=== PATIENT | female | born 1950 | race Caucasian/White ===

== ENCOUNTER 2018-11-13 20:09 | Emergency (ER) | payer OTHER ==
[~2018-11-13] VITALS: Ht 167.6 cm; Wt 63.5 kg
[~2018-11-13 20:09] MED LIST: ACEASPCAF PO; ALBIPROI; AMIT50; C-PAP AT NIGHT; FLUSAL1005; IBUP400 PO; LISI10 PO; OMEP20ER; OXYGEN; PROGESTERONE CREAM; TOPI100; TRAN2; VERA240ER
[2018-11-13 20:48] LABS: BASOPHILS ABSOLUTE AUTO 0.03 K/mm3 (0.00-0.23); BASOPHILS PERCENT AUTO 0 % (0-2); EOSINOPHILS ABSOLUTE AUTO 0.32 K/mm3 (0.00-0.68); EOSINOPHILS PERCENT AUTO 4 % (0-6); Hematocrit 40.6 % (33.0-51.0); IMMATURE GRAN ABSOLUTE AUTO 0.02 K/mm3 (0.00-0.10); IMMATURE GRAN PERCENT AUTO 0 % (0-1); LYMPHOCYTES ABSOLUTE AUTO 3.26 K/mm3 (0.84-5.20); LYMPHOCYTES PERCENT AUTO 43 % (21-46); MONOCYTES ABSOLUTE AUTO 0.86 K/mm3 (0.16-1.47); MONOCYTES PERCENT AUTO 11 % (4-13); Mean Corpuscular HGB 28.6 pg (26.0-34.0); Mean Corpuscular Volume 89 fL (80-100); Mean Platelet Volume 9.4 fL (9.1-12.4); NEUTROPHILS ABSOLUTE AUTO 3.15 K/mm3 (1.96-9.15); NEUTROPHILS PERCENT AUTO 41 % (41-73); Platelet Count 294 K/mm3 (150-400); RDW Coefficient Variation 13.7 % (11.7-14.2); RDW Standard Deviation 44.9 fL (35.1-46.3); Red Blood Cell Count 4.54 M/mm3 (3.80-5.20); White Blood Cell Count 7.64 K/mm3 (4.00-11.30)
[2018-11-13 21:08] LABS: Alanine Aminotransfer (ALT/SGP 10 U/L (12-78); Albumin, Blood 3.6 g/dL (3.4-5.0); Albumin/Globulin Ratio 1.1 (0.8-1.8); Alk Phos 90 U/L (50-136); Anion Gap 7 mmol/L (6-16); Aspartate Aminotrans (AST/SGOT 11 U/L (12-37); Bilirubin, Total 0.2 mg/dL (0.1-1.0); Blood Urea Nitrogen 16 mg/dL (8-24); Bun/Creatinine Ratio 17.6 (12.0-20.0); CO2, Blood 30 mmol/L (21-32); Calcium, Blood 9.1 mg/dL (8.5-10.1); Chloride, Blood 105 mmol/L (98-108); Creatinine, Blood 0.91 mg/dL (0.40-1.00); Globulin, Blood 3.3 g/dL (2.2-4.0); Glomerular Filtration Rate >60 (60-); Glucose, Blood 102 mg/dL (70-99); Potassium, Blood 3.8 mmol/L (3.5-5.5); Sodium, Blood 142 mmol/L (136-145); Total Protein, Blood 6.9 g/dL (6.4-8.2)
[2018-11-13] MEDS ORDERED: Cymbalta20 MG PT (22:35)
[2018-11-13] MEDS ORDERED: BUSP10 (22:35)
[2018-11-13] MEDS ORDERED: METF500C PO (22:35)
[2018-11-13] MEDS ORDERED: Amitriptyline H10 MG PO (22:36)
== END 2018-11-14 00:23 | disposition home or self-care (01) ==
LOC: ER 20:09
PROVIDERS: Physician Assistant
DX: R47.01 Aphasia (principal); Z88.0 Allergy status to penicillin; Z79.899 Other long term (current) drug therapy; Z79.84 Long term (current) use of oral hypoglycemic drugs; I10 Essential (primary) hypertension
CPT/HCPCS: 36415; 70450; 80053; 85025; 96360; 99284-25; J7030

== ENCOUNTER 2019-02-13 23:14 | Emergency (ER) | payer OTHER ==
[~2019-02-13] VITALS: Ht 167.6 cm; Wt 63.5 kg
[~2019-02-13 23:14] MED LIST changes: +Amitriptyline H10 MG PO; +BUSP10; +Cymbalta20 MG PT; +METF500C PO
[2019-02-13] MEDS ORDERED: Monodox100 MG PO (23:37)
== END 2019-02-14 00:02 | disposition home or self-care (01) ==
LOC: ER 23:14
DX: S51.851A Open bite of right forearm, initial encounter (principal); L03.113 Cellulitis of right upper limb; I10 Essential (primary) hypertension; Z88.0 Allergy status to penicillin; Z79.899 Other long term (current) drug therapy; W55.01XA Bitten by cat, initial encounter
CPT/HCPCS: 99283

== ENCOUNTER 2019-02-14 20:31 | Emergency (ER) | payer OTHER ==
[~2019-02-14] VITALS: Ht 167.6 cm; Wt 63.5 kg
[~2019-02-14 20:31] MED LIST changes: +Monodox100 MG PO
== END 2019-02-14 23:38 | disposition home or self-care (01) ==
LOC: ER 20:31
DX: L03.113 Cellulitis of right upper limb (principal); Z91.14 Patient's other noncompliance with medication regimen; I10 Essential (primary) hypertension; M79.7 Fibromyalgia; Z88.0 Allergy status to penicillin; Z79.899 Other long term (current) drug therapy; W55.01XA Bitten by cat, initial encounter
CPT/HCPCS: 99283

== ENCOUNTER 2021-07-25 04:28 | Emergency (ER) | payer OTHER ==
[~2021-07-25] VITALS: Ht 165.1 cm; Wt 56.7 kg
[2021-07-25] MEDS ORDERED: OMEP20ER PO (04:57)
[2021-07-25] MEDS ORDERED: IPRAT-ALBUT 0.5-3 ML INH (04:58)
[2021-07-25] MEDS ORDERED: MONT4 PO (04:58)
[2021-07-25 06:09] LABS: BASOPHILS ABSOLUTE AUTO 0.01 K/mm3 (0.00-0.23); BASOPHILS PERCENT AUTO 0 % (0-2); EOSINOPHILS ABSOLUTE AUTO 0.01 K/mm3 (0.00-0.68); EOSINOPHILS PERCENT AUTO 0 % (0-6); Hematocrit 42.6 % (33.0-51.0); Hemoglobin 14.7 g/dL (11.5-16.0); IMMATURE GRAN ABSOLUTE AUTO 0.04 K/mm3 (0.00-0.10); IMMATURE GRAN PERCENT AUTO 1 % (0-1); LYMPHOCYTES ABSOLUTE AUTO 1.17 K/mm3 (0.84-5.20); LYMPHOCYTES PERCENT AUTO 22 % (21-46); MONOCYTES ABSOLUTE AUTO 0.57 K/mm3 (0.16-1.47); MONOCYTES PERCENT AUTO 11 % (4-13); Mean Corpuscular HGB Conc 34.5 g/dL (31.5-36.5); Mean Corpuscular Volume 84 fL (80-100); Mean Platelet Volume 10.6 fL (9.1-12.4); NEUTROPHILS PERCENT AUTO 66 % (41-73); Platelet Count 208 K/mm3 (150-400); RDW Coefficient Variation 13.2 % (11.7-14.2); RDW Standard Deviation 40.7 fL (35.1-46.3); Red Blood Cell Count 5.07 M/mm3 (3.80-5.20)
[2021-07-25 06:23] LABS: Alanine Aminotransfer (ALT/SGP 15 U/L (12-78); Albumin, Blood 3.1 g/dL (3.4-5.0); Albumin/Globulin Ratio 0.8 (0.8-1.8); Alk Phos 78 U/L (50-136); Anion Gap 11 mmol/L (6-16); Aspartate Aminotrans (AST/SGOT 8 U/L (12-37); Bilirubin, Total 0.6 mg/dL (0.1-1.0); Blood Urea Nitrogen 15 mg/dL (8-24); Bun/Creatinine Ratio 17.4 (12.0-20.0); CO2, Blood 24 mmol/L (21-32); Calcium, Blood 9.9 mg/dL (8.5-10.1); Chloride, Blood 105 mmol/L (98-108); Creatinine, Blood 0.86 mg/dL (0.40-1.00); Globulin, Blood 3.7 g/dL (2.2-4.0); Glomerular Filtration Rate >60 (60-); Glucose, Blood 157 mg/dL (70-99); Potassium, Blood 3.3 mmol/L (3.5-5.5); Sodium, Blood 140 mmol/L (136-145); Total Protein, Blood 6.8 g/dL (6.4-8.2); Troponin I <0.015 ng/mL (0.000-0.040)
[2021-07-25 07:04] LABS: SARS-Cov-2 (COVID-19) PCR, MMC POSITIVE (NEGATIVE)
[2021-07-25] MEDS ORDERED: LOPE2C PO (07:30)
[2021-07-25] MEDS ORDERED: ONDA4ODT MM (07:30)
[2021-07-25 07:52] LABS: Source, Urine Clean Catch
[2021-07-25 07:56] LABS: Appearance, Urine Clear (Clear); Bilirubin, Urine Neg (Neg); Blood, Urine Neg (Neg); Color, Urine Yellow (P-Yellow); Glucose Qualitative, Urine Neg (Neg); Ketones, Urine Neg (Neg); Leukocyte Esterase, Urine 1+ (Neg); Nitrite, Urine Neg (Neg); Protein, Urine Neg (Neg); Urobilinogen, Urine NORM (Normal); pH, Urine 6.5 (5.0-8.0)
[2021-07-25 08:08] LABS: Bacteria Rare /hpf; Red Blood Cells, Urine 0-2 /hpf (0-2); Squamous Epithelial Cells Rare /hpf (Few); White Blood Cells, Urine 0-2 /hpf (0-5)
[2021-07-26] MEDS ORDERED: BENADRYL25 MG PO (00:36)
[2021-07-26] MEDS ORDERED: HYDHCL25 PO (00:36)
== END 2021-07-25 10:48 | disposition home or self-care (01) ==
LOC: ER 04:28
PROVIDERS: Emergency Medicine
DX: U07.1 COVID-19 (principal); E86.0 Dehydration; I10 Essential (primary) hypertension; Z79.899 Other long term (current) drug therapy
CPT/HCPCS: 36415; 71045; 80053; 81001; 84484; 85025; 87086; 87147; 93005; 93010; 99284-25; A9270; J7030; J7120; M0243; Q0243; U0004

== ENCOUNTER 2021-07-25 22:18 | Emergency (ER) | payer OTHER ==
[~2021-07-25] VITALS: Ht 167.6 cm; Wt 56.7 kg
[~2021-07-25 22:18] MED LIST changes: +IPRAT-ALBUT 0.5-3 ML INH; +LOPE2C PO; +MONT4 PO; +OMEP20ER PO; +ONDA4ODT MM
[2021-07-26] MEDS ORDERED: HYDHCL25 PO (00:36)
[2021-07-26] MEDS ORDERED: BENADRYL25 MG PO (00:36)
== END 2021-07-26 00:47 | disposition home or self-care (01) ==
LOC: ER 22:18
DX: U07.1 COVID-19 (principal); L50.9 Urticaria, unspecified; F41.9 Anxiety disorder, unspecified; I82.C19 Acute embolism and thrombosis of unspecified internal jugular vein; Z88.0 Allergy status to penicillin; Z79.899 Other long term (current) drug therapy; M79.7 Fibromyalgia; I10 Essential (primary) hypertension
CPT/HCPCS: 96374; 99283-25; A9270; J1200; J7030

== ENCOUNTER 2021-12-08 17:10 | Emergency (ER) | payer OTHER ==
[~2021-12-08] VITALS: Ht 165.1 cm; Wt 63.5 kg
[~2021-12-08 17:10] MED LIST changes: +BENADRYL25 MG PO; +HYDHCL25 PO
[2021-12-08] MEDS ORDERED: Norco 5-325 Ta1 EACH PO (18:03)
[2021-12-08] MEDS ORDERED: CRUTCH4 XX (18:05)
== END 2021-12-08 18:35 | disposition home or self-care (01) ==
LOC: ER 17:10
DX: S92.321A Displaced fracture of second metatarsal bone, right foot, initial encounter for closed fracture (principal); S92.331A Displaced fracture of third metatarsal bone, right foot, initial encounter for closed fracture; S92.341A Displaced fracture of fourth metatarsal bone, right foot, initial encounter for closed fracture; I10 Essential (primary) hypertension; Z88.0 Allergy status to penicillin; Z79.899 Other long term (current) drug therapy; W08.XXXA Fall from other furniture, initial encounter
CPT/HCPCS: 29515; 99283-25; A9270

== ENCOUNTER 2022-02-17 00:30 | Inpatient (IN) | payer OTHER ==
[~2022-02-17] VITALS: Ht 172.7 cm; Wt 64.0 kg
[~2022-02-17 00:30] MED LIST changes: -BUSP10; +BUSP10 PO; +CRUTCH4 XX; +Norco 5-325 Ta1 EACH PO
[2022-02-17 01:10] LABS: BASOPHILS ABSOLUTE AUTO 0.02 K/mm3 (0.00-0.23); BASOPHILS PERCENT AUTO 0 % (0-2); EOSINOPHILS PERCENT AUTO 0 % (0-6); Hematocrit 36.1 % (33.0-51.0); Hemoglobin 11.9 g/dL (11.5-16.0); IMMATURE GRAN ABSOLUTE AUTO 0.02 K/mm3 (0.00-0.10); IMMATURE GRAN PERCENT AUTO 0 % (0-1); LYMPHOCYTES ABSOLUTE AUTO 0.86 K/mm3 (0.84-5.20); LYMPHOCYTES PERCENT AUTO 10 % (21-46); MONOCYTES ABSOLUTE AUTO 0.36 K/mm3 (0.16-1.47); MONOCYTES PERCENT AUTO 4 % (4-13); Mean Corpuscular HGB 29.8 pg (26.0-34.0); Mean Corpuscular Volume 90 fL (80-100); Mean Platelet Volume 9.7 fL (9.1-12.4); NEUTROPHILS ABSOLUTE AUTO 7.23 K/mm3 (1.96-9.15); NEUTROPHILS PERCENT AUTO 85 % (41-73); Platelet Count 286 K/mm3 (150-400); RDW Coefficient Variation 14.3 % (11.7-14.2); RDW Standard Deviation 47.8 fL (35.1-46.3); White Blood Cell Count 8.49 K/mm3 (4.00-11.30)
[2022-02-17 01:21] LABS: Source, Urine Clean Catch
[2022-02-17 01:23] LABS: Bilirubin, Urine Neg (Neg); Blood, Urine 2+ (Neg); Glucose Qualitative, Urine Neg (Neg); Ketones, Urine 4+ (Neg); Leukocyte Esterase, Urine Neg (Neg); Nitrite, Urine Neg (Neg); Protein, Urine 1+ (Neg); Urobilinogen, Urine NORM (Normal)
[2022-02-17 01:28] LABS: Alanine Aminotransfer (ALT/SGP 16 U/L (12-78); Albumin, Blood 3.4 g/dL (3.4-5.0); Alk Phos 79 U/L (50-136); Anion Gap 8 mmol/L (6-16); Aspartate Aminotrans (AST/SGOT 18 U/L (12-37); Bilirubin, Total 0.6 mg/dL (0.1-1.0); Blood Urea Nitrogen 13 mg/dL (8-24); CO2, Blood 24 mmol/L (21-32); Calcium, Blood 9.5 mg/dL (8.5-10.1); Chloride, Blood 105 mmol/L (98-108); Creatinine, Blood 0.81 mg/dL (0.40-1.00); Ethanol (Alcohol), Blood, Med <3 mg/dL; Globulin, Blood 3.4 g/dL (2.2-4.0); Glomerular Filtration Rate 79 (60-); Glucose, Blood 126 mg/dL (70-99); Potassium, Blood 3.9 mmol/L (3.5-5.5); Sodium, Blood 137 mmol/L (136-145); Total Protein, Blood 6.8 g/dL (6.4-8.2)
[2022-02-17 01:36] LABS: Appearance, Urine Clear (Clear); Color, Urine Yellow (P-Yellow)
[2022-02-17 01:37] LABS: Bacteria Not Seen /hpf; Red Blood Cells, Urine 0-2 /hpf (0-2); Squamous Epithelial Cells Rare /hpf (Few); White Blood Cells, Urine Not Seen /hpf (0-5)
[2022-02-17 01:43] LABS: Base Excess Venous 2.8 mmol/L; Bicarbonate Venous 26.9 mmol/L (24.0-30.0); pH Blood Venous 7.48 (7.34-7.37)
[2022-02-17 01:46] LABS: U Amphetamine Screen Not Detected; U Barbituate Screen Not Detected; U Benzodiazapine Screen Not Detected; U Buprenorphine Screen Not Detected; U Cannabinoids Screen DETECTED; U Cocaine Screen Not Detected; U Methadone Screen Not Detected; U Methamphetamine Screen Not Detected; U Opiates Screen DETECTED; U Oxycodone Screen Not Detected; U Phencyclidine Screen Not Detected; U Propoxyphene Screen Not Detected
[2022-02-17 02:11] LABS: CPK Creatine Kinase 171 U/L (26-193)
[2022-02-17 02:59] LABS: Influenza A, PCR NEGATIVE (NEGATIVE); Influenza B, PCR NEGATIVE (NEGATIVE); Resp Syncytial Virus, PCR NEGATIVE (NEGATIVE); SARS-Cov-2 (COVID-19) PCR, MMC NEGATIVE (NEGATIVE)
[2022-02-17 05:50] LABS: C-REACTIVE PROTEIN, EXT RANGE 0.636 mg/dL (0.000-0.300)
--- NOTE | 2022-02-17 17:07 | NUR ---
PT UP TO UNIT AT 1545. PT A&O, FOLLOWS COMMANDS. ASSESSMENT COMPLETED, NO SKIN BREAKDOWN NOTED. PT ON MONITOR, COMFIRMED WITH BAKERY HELPER PT NAME, , AND BOX NUMBER. PT ST, 100'S. NO C/O PAIN. NS INFUSING AT 125ML/HR PER ORDERS X 1.5L. ORIENTED TO ROOM AND PLAN OF CARE. PT VOICED UNDERSTANDING.
--- NOTE | 2022-02-17 18:10 | NUR ---
THIS ENDOCRINOLOGY NURSE HAS REVIEWED LAWRENCE MCGUIRE'S NOTES AND ASSESSMENTS AND AGREES WITH THEM.
[2022-02-18 05:16] LABS: BASOPHILS ABSOLUTE AUTO 0.03 K/mm3 (0.00-0.23); BASOPHILS PERCENT AUTO 0 % (0-2); EOSINOPHILS ABSOLUTE AUTO 0.06 K/mm3 (0.00-0.68); EOSINOPHILS PERCENT AUTO 1 % (0-6); Hematocrit 35.3 % (33.0-51.0); Hemoglobin 11.5 g/dL (11.5-16.0); IMMATURE GRAN ABSOLUTE AUTO 0.02 K/mm3 (0.00-0.10); IMMATURE GRAN PERCENT AUTO 0 % (0-1); LYMPHOCYTES ABSOLUTE AUTO 2.53 K/mm3 (0.84-5.20); LYMPHOCYTES PERCENT AUTO 37 % (21-46); MONOCYTES ABSOLUTE AUTO 0.77 K/mm3 (0.16-1.47); MONOCYTES PERCENT AUTO 11 % (4-13); Mean Corpuscular HGB 29.8 pg (26.0-34.0); Mean Corpuscular HGB Conc 32.6 g/dL (31.5-36.5); Mean Corpuscular Volume 92 fL (80-100); Mean Platelet Volume 9.5 fL (9.1-12.4); NEUTROPHILS ABSOLUTE AUTO 3.53 K/mm3 (1.96-9.15); NEUTROPHILS PERCENT AUTO 51 % (41-73); Platelet Count 253 K/mm3 (150-400); RDW Coefficient Variation 14.6 % (11.7-14.2); RDW Standard Deviation 49.2 fL (35.1-46.3); Red Blood Cell Count 3.86 M/mm3 (3.80-5.20); White Blood Cell Count 6.94 K/mm3 (4.00-11.30)
[2022-02-18 05:48] LABS: Albumin/Globulin Ratio 1.1 (0.8-1.8); Bilirubin, Total 0.8 mg/dL (0.1-1.0); Calcium, Blood 9.1 mg/dL (8.5-10.1); Creatinine, Blood 0.71 mg/dL (0.40-1.00); Globulin, Blood 2.8 g/dL (2.2-4.0); Magnesium, Blood 1.7 mg/dL (1.6-2.4); Phosphorus, Blood 2.2 mg/dL (2.5-4.9); Potassium, Blood 3.5 mmol/L (3.5-5.5); Total Protein, Blood 5.8 g/dL (6.4-8.2)
--- NOTE | 2022-02-18 05:50 | NUR ---
CHAINSTITCH BINDER SUMMARY ADMITTED FOR SEPSIS AND AMS. PT IS FULL CODE. SHE HAS BEEN ON NS AT 125 ML/HR- COMPLETED 1.5 L. PT IS ONE PERSON ASSIST TO THE RESTROOM AND DOES WELL. PLAN TO CONTINUE ABX AND CONTROL FEVER. PT SLEPT THROUGHOUT THE SHIFT WITHOUT COMPLAINTS.
[2022-02-18] MEDS ORDERED: AZIT250 PO (11:41)
[2022-02-18] MEDS ORDERED: ACET325 PO (11:41)
--- NOTE | 2022-02-18 16:13 | NUR ---
DISCHARGE INSTRUCTIONS, MEDICATIONS, AND FOLLOW UP INFORMATION PROVIDED TO FAMILY AND PT. PT AND FAMILY VOICED COMPLETE UNDERSTANDING AND HAVE NO QUESTIONS AT THIS TIME. IV WAS REMOVED WITH CATHETER TIP INTACT. PTS BELONGINGS COLLECTED AND SENT WITH PT.
--- NOTE | 2022-02-18 17:11 | NUR ---
THIS MOLDED FRAMES ASSEMBLER HAS REVIEWED SHAYLA BRAVO'S NOTES AND ASSESSMENTS AND AGREES WITH THEM.
== END 2022-02-18 16:45 | disposition home health service (06) | DRG 871 ==
LOC: ER 00:30 → ERHOLD 06:36 → MEDS 15:35
PROVIDERS: Emergency Medicine; Student in an Organized Health Care Education/Training Program; ADMIT Internal Medicine
DX: A41.9 Sepsis, unspecified organism (principal); J18.9 Pneumonia, unspecified organism; G93.41 Metabolic encephalopathy; E87.3 Alkalosis; Q21.1 Atrial septal defect; R65.20 Severe sepsis without septic shock; Z20.822 Contact with and (suspected) exposure to COVID-19; I10 Essential (primary) hypertension; G89.29 Other chronic pain; E86.0 Dehydration; F41.9 Anxiety disorder, unspecified; G47.30 Sleep apnea, unspecified; E11.9 Type 2 diabetes mellitus without complications; J45.909 Unspecified asthma, uncomplicated; G43.909 Migraine, unspecified, not intractable, without status migrainosus; E78.5 Hyperlipidemia, unspecified; K21.9 Gastro-esophageal reflux disease without esophagitis; M79.7 Fibromyalgia; Z98.51 Tubal ligation status; Z98.890 Other specified postprocedural states; Z79.51 Long term (current) use of inhaled steroids; Z79.899 Other long term (current) drug therapy; Z88.0 Allergy status to penicillin
CPT/HCPCS: 0241U; 36415; 70450; 70551; 71045; 80053; 81001; 82140; 82550; 82803; 83605; 83735; 83880; 84100; 84145; 84146; 85025; 85651; 86140; 87040; 93005; 93010; 96365; 96375; 96376; 99285-25; A9270; G0480; J0456; J0696; J1650; J2060; J2765; J7030; J7050; P9612

== ENCOUNTER 2022-04-15 17:28 | Emergency (ER) | payer OTHER ==
[~2022-04-15] VITALS: Ht 167.6 cm; Wt 63.5 kg
[~2022-04-15 17:28] MED LIST changes: +ACET325 PO; +AZIT250 PO; -LISI10 PO; +LISI20 PO; +NITR100CA PO
[2022-04-15] MEDS ORDERED: ATORVASTATIN CA20 MG PO (18:37)
[2022-04-15] MEDS ORDERED: BUSPIRONE HCL7.5 M6 PO (18:37)
[2022-04-15] MEDS ORDERED: OMEP20ER PO (18:38)
[2022-04-15 19:08] LABS: BASOPHILS ABSOLUTE AUTO 0.03 K/mm3 (0.00-0.23); BASOPHILS PERCENT AUTO 0 % (0-2); EOSINOPHILS ABSOLUTE AUTO 0.15 K/mm3 (0.00-0.68); EOSINOPHILS PERCENT AUTO 2 % (0-6); Hematocrit 32.3 % (33.0-51.0); Hemoglobin 10.7 g/dL (11.5-16.0); IMMATURE GRAN ABSOLUTE AUTO 0.04 K/mm3 (0.00-0.10); IMMATURE GRAN PERCENT AUTO 1 % (0-1); LYMPHOCYTES ABSOLUTE AUTO 1.97 K/mm3 (0.84-5.20); LYMPHOCYTES PERCENT AUTO 29 % (21-46); MONOCYTES ABSOLUTE AUTO 0.99 K/mm3 (0.16-1.47); MONOCYTES PERCENT AUTO 14 % (4-13); Mean Corpuscular HGB 29.9 pg (26.0-34.0); Mean Corpuscular HGB Conc 33.1 g/dL (31.5-36.5); Mean Corpuscular Volume 90 fL (80-100); Mean Platelet Volume 9.6 fL (9.1-12.4); NEUTROPHILS ABSOLUTE AUTO 3.71 K/mm3 (1.96-9.15); NEUTROPHILS PERCENT AUTO 54 % (41-73); Platelet Count 261 K/mm3 (150-400); RDW Coefficient Variation 13.1 % (11.7-14.2); RDW Standard Deviation 43.2 fL (35.1-46.3); Red Blood Cell Count 3.58 M/mm3 (3.80-5.20); White Blood Cell Count 6.89 K/mm3 (4.00-11.30)
[2022-04-15 19:13] LABS: Base Excess Venous 3.6 mmol/L; Bicarbonate Venous 27.5 mmol/L (24.0-30.0); PCO2 Venous 39.9 mmHg (38-42); PO2 Venous 133 mmHg (38-42); pH Blood Venous 7.45 (7.34-7.37)
[2022-04-15 19:33] LABS: Albumin, Blood 3.1 g/dL (3.4-5.0); Bilirubin, Total 0.2 mg/dL (0.1-1.0); Bun/Creatinine Ratio 15.6 (12.0-20.0); Calcium, Blood 7.8 mg/dL (8.5-10.1); Creatinine, Blood 0.77 mg/dL (0.40-1.00); Magnesium, Blood 0.8 mg/dL (1.6-2.4); Total Protein, Blood 6.1 g/dL (6.4-8.2)
== END 2022-04-16 00:19 | disposition home or self-care (01) ==
LOC: ER 17:28
PROVIDERS: Student in an Organized Health Care Education/Training Program
DX: R42 Dizziness and giddiness (principal); R25.1 Tremor, unspecified; E83.42 Hypomagnesemia; E87.6 Hypokalemia; R07.9 Chest pain, unspecified; I10 Essential (primary) hypertension; M79.7 Fibromyalgia; Z88.0 Allergy status to penicillin; Z79.899 Other long term (current) drug therapy
CPT/HCPCS: 36415; 71046; 80053; 82803; 83605; 83735; 84484; 85025; 85379; 93005; 93010; A9270; J1200; J1885; J2765; J3475

== ENCOUNTER → 2022-04-19 | Outpatient (CLI) | payer OTHER ==
[~2022-04-19] MED LIST changes: +ATORVASTATIN CA20 MG PO; +BUSPIRONE HCL7.5 M6 PO
[2022-04-20 09:11] LABS: Stool Occult Bld Immuno 1 Positive (NEGATIVE)
== END | disposition home or self-care (01) ==
LOC: LAB SHORT 12:00 → LAB 12:00
PROVIDERS: Student in an Organized Health Care Education/Training Program
DX: D64.9 Anemia, unspecified (principal)
CPT/HCPCS: 82274

== ENCOUNTER 2022-05-13 21:52 | Emergency (ER) | payer OTHER ==
[~2022-05-13] VITALS: Ht 167.6 cm; Wt 72.6 kg
[2022-05-13 22:26] LABS: BASOPHILS ABSOLUTE AUTO 0.03 K/mm3 (0.00-0.23); BASOPHILS PERCENT AUTO 0 % (0-2); EOSINOPHILS ABSOLUTE AUTO 0.23 K/mm3 (0.00-0.68); EOSINOPHILS PERCENT AUTO 3 % (0-6); Hematocrit 39.4 % (33.0-51.0); IMMATURE GRAN ABSOLUTE AUTO 0.02 K/mm3 (0.00-0.10); IMMATURE GRAN PERCENT AUTO 0 % (0-1); LYMPHOCYTES ABSOLUTE AUTO 4.01 K/mm3 (0.84-5.20); LYMPHOCYTES PERCENT AUTO 47 % (21-46); MONOCYTES ABSOLUTE AUTO 0.74 K/mm3 (0.16-1.47); MONOCYTES PERCENT AUTO 9 % (4-13); Mean Corpuscular HGB 29.3 pg (26.0-34.0); Mean Corpuscular Volume 89 fL (80-100); Mean Platelet Volume 10.5 fL (9.1-12.4); NEUTROPHILS ABSOLUTE AUTO 3.51 K/mm3 (1.96-9.15); NEUTROPHILS PERCENT AUTO 41 % (41-73); Platelet Count 314 K/mm3 (150-400); RDW Coefficient Variation 12.9 % (11.7-14.2); RDW Standard Deviation 42.1 fL (35.1-46.3); Red Blood Cell Count 4.44 M/mm3 (3.80-5.20); White Blood Cell Count 8.54 K/mm3 (4.00-11.30)
[2022-05-13 22:38] LABS: Albumin, Blood 3.6 g/dL (3.4-5.0); Albumin/Globulin Ratio 1.2 (0.8-1.8); Bilirubin, Total 0.5 mg/dL (0.1-1.0); Calcium, Blood 9.2 mg/dL (8.5-10.1); Creatinine, Blood 0.91 mg/dL (0.40-1.00); Globulin, Blood 3.1 g/dL (2.2-4.0); Total Protein, Blood 6.7 g/dL (6.4-8.2)
[2022-05-13 23:24] LABS: Source, Urine Clean Catch
[2022-05-13 23:53] LABS: Bilirubin, Urine Neg (Neg); Blood, Urine Neg (Neg); Glucose Qualitative, Urine Neg (Neg); Ketones, Urine 1+ (Neg); Leukocyte Esterase, Urine Neg (Neg); Nitrite, Urine Neg (Neg); Protein, Urine 2+ (Neg); Urobilinogen, Urine NORM (Normal)
[2022-05-13 23:56] LABS: U Amphetamine Screen Not Detected; U Barbituate Screen Not Detected; U Benzodiazapine Screen Not Detected; U Buprenorphine Screen Not Detected; U Cannabinoids Screen DETECTED; U Cocaine Screen Not Detected; U Methadone Screen Not Detected; U Methamphetamine Screen Not Detected; U Opiates Screen Not Detected; U Oxycodone Screen Not Detected; U Phencyclidine Screen Not Detected; U Propoxyphene Screen Not Detected
[2022-05-13 23:57] LABS: Appearance, Urine Clear (Clear); Bacteria Rare /hpf; Color, Urine Yellow (P-Yellow); Red Blood Cells, Urine 0-2 /hpf (0-2); Squamous Epithelial Cells Few /hpf (Few); White Blood Cells, Urine Not Seen /hpf (0-5)
[2022-05-14] MEDS ORDERED: LEVE500 PO (00:34)
== END 2022-05-14 03:10 | disposition home or self-care (01) ==
LOC: ER 21:52
PROVIDERS: Emergency Medicine
DX: R56.9 Unspecified convulsions (principal); I10 Essential (primary) hypertension; Z79.899 Other long term (current) drug therapy; Z88.0 Allergy status to penicillin
CPT/HCPCS: 80053; 81001; 82947; 85025; 93005; 93010; J1953

== ENCOUNTER 2022-08-16 06:59 | Day surgery (SDC) | payer OTHER ==
[~2022-08-16] VITALS: Ht 165.1 cm; Wt 68.1 kg
[~2022-08-16 06:59] MED LIST changes: +DULOXETINE HCL60 M1 PO; +LEVE500 PO
--- NOTE | 2022-08-16 08:06 | NUR ---
08/16/22 0806 Ben Moser HISTORY, CHART, MEDICATIONS AND ALLERGIES REVIEWED BEFORE START OF PROCEDURE. PATIENT CONFIRMS NPO STATUS AND AGREES WITH SCHEDULED PROCEDURE. 3-LEAD EKG REVIEWED WITH PHYSICIAN PRIOR TO START OF PROCEDURE. MONITOR INTACT WITH CONTINUOUS PULSE OXIMETRY,CAPNOGRAPHY, 3-LEAD EKG, INTERMITTENT BP. SUPPLEMENTAL O2 TO BE TITRATED THROUGHOUT PROCEDURE TO MAINTAIN O2 SATURATION ABOVE 90%. PATIENT DETERMINED TO BE ASA APPROPRIATE FOR PROPOFOL SEDATION PRIOR TO START OF PROCEDURE BY
--- NOTE | 2022-08-16 08:13 | NUR ---
Ambulatory in [facility] warming gown applied. Patient states colon prep results clear. History, Chart, Medications and Allergies reviewed before start of procedure.Lungs clear T/O to Auscultation. Patient confirms NPO status and agrees with scheduled surgery. Pre-Op teaching done. Pt verbalizes understanding. Patient States Post-Procedure ride home has been arranged.
--- NOTE | 2022-08-16 08:56 | NUR ---
REPORT RECEIVED FROM BARBARA Allen RN. TAKEN OVER CARE.
--- NOTE | 2022-08-16 09:34 | NUR ---
Patient up to Ambulate independently. Gait steady. Discharge instructions reviewed with patient. Patient verbalizes understanding. Copy given to patient to take home.Lungs clear T/O to Auscultation. Discharged via wheelchair to private car for ride home. PT TAUGHT DEEP BREATH AND COUGH FOR LUNG HEALTH.
== END 2022-08-16 22:39 | disposition home or self-care (01) ==
LOC: ORSCMMR 06:59 → ORD 08:00 → ORSCMMR 08:00
PROVIDERS: Internal Medicine Gastroenterology
PROC: 0DBN8ZX Excision of Sigmoid Colon, Via Natural or Artificial Opening Endoscopic, Diagnostic (ICD-10-PCS; principal; 2022-08-16 08:00)
PROC: 0DBK8ZX Excision of Ascending Colon, Via Natural or Artificial Opening Endoscopic, Diagnostic (ICD-10-PCS; principal; 2022-08-16 08:00)
PROC: 0DBL8ZX Excision of Transverse Colon, Via Natural or Artificial Opening Endoscopic, Diagnostic (ICD-10-PCS; principal; 2022-08-16 08:00)
DX: R19.5 Other fecal abnormalities (principal); D12.2 Benign neoplasm of ascending colon; D12.3 Benign neoplasm of transverse colon; D12.5 Benign neoplasm of sigmoid colon; K64.8 Other hemorrhoids; I10 Essential (primary) hypertension; J45.909 Unspecified asthma, uncomplicated; G40.909 Epilepsy, unspecified, not intractable, without status epilepticus; K21.9 Gastro-esophageal reflux disease without esophagitis; E78.00 Pure hypercholesterolemia, unspecified; F32.A Depression, unspecified; Z79.899 Other long term (current) drug therapy
CPT/HCPCS: 88305; J2250; J2704; J7120

== ENCOUNTER 2023-10-12 17:38 | Emergency (ER) | payer OTHER ==
[~2023-10-12] VITALS: Ht 165.1 cm; Wt 59.0 kg
[~2023-10-12 17:38] MED LIST changes: +ALBU2.5V5 INH; +CEFD300 PO; +GUAI600T33 PO; +MAGNESIUM OXID500 MG PO; +PRED20 PO; +Pepcid40 MG PO; +Prednisone20 MG PO
[2023-10-12] MEDS ORDERED: RX Prepack 6 Tabs Oxycodone 5mg UD ONE (18:50)
[2023-10-12] MEDS ORDERED: HYDROmorphone HCl/Pf 1MG SYR IV ONE (18:50)
[2023-10-12 19:45] VITALS: BP 131/89
== END 2023-10-12 19:55 | disposition home or self-care (01) ==
LOC: ER 17:38
DX: S42.212A Unspecified displaced fracture of surgical neck of left humerus, initial encounter for closed fracture (principal); M79.7 Fibromyalgia; I10 Essential (primary) hypertension; J45.909 Unspecified asthma, uncomplicated; G47.30 Sleep apnea, unspecified; F32.A Depression, unspecified; E78.5 Hyperlipidemia, unspecified; W18.30XA Fall on same level, unspecified, initial encounter; Z88.0 Allergy status to penicillin; Z91.018 Allergy to other foods; Z79.899 Other long term (current) drug therapy
CPT/HCPCS: 71046; 73030; 96374; 99284-25; A9270; J1170

== ENCOUNTER 2023-10-15 11:34 | Emergency (ER) | payer OTHER ==
[~2023-10-15] VITALS: Ht 165.1 cm; Wt 59.0 kg
[2023-10-15 12:04] LABS: BASOPHILS ABSOLUTE AUTO 0.03 K/mm3 (0.00-0.23); BASOPHILS PERCENT AUTO 0 % (0-2); EOSINOPHILS ABSOLUTE AUTO 0.05 K/mm3 (0.00-0.68); EOSINOPHILS PERCENT AUTO 0 % (0-6); Hematocrit 42.5 % (33.0-51.0); Hemoglobin 14.6 g/dL (11.5-16.0); IMMATURE GRAN ABSOLUTE AUTO 0.04 K/mm3 (0.00-0.10); IMMATURE GRAN PERCENT AUTO 0 % (0-1); LYMPHOCYTES ABSOLUTE AUTO 2.16 K/mm3 (0.84-5.20); LYMPHOCYTES PERCENT AUTO 18 % (21-46); MONOCYTES ABSOLUTE AUTO 1.19 K/mm3 (0.16-1.47); MONOCYTES PERCENT AUTO 10 % (4-13); Mean Corpuscular HGB 30.2 pg (26.0-34.0); Mean Corpuscular HGB Conc 34.4 g/dL (31.5-36.5); Mean Corpuscular Volume 88 fL (80-100); Mean Platelet Volume 9.2 fL (9.1-12.4); NEUTROPHILS ABSOLUTE AUTO 8.53 K/mm3 (1.96-9.15); NEUTROPHILS PERCENT AUTO 71 % (41-73); Platelet Count 361 K/mm3 (150-400); RDW Coefficient Variation 13.1 % (11.7-14.2); RDW Standard Deviation 42.5 fL (35.1-46.3); Red Blood Cell Count 4.84 M/mm3 (3.80-5.20)
[2023-10-15 12:38] LABS: Albumin, Blood 3.6 g/dL (3.4-5.0); Bilirubin, Total 0.8 mg/dL (0.1-1.0); Bun/Creatinine Ratio 25.4 (12.0-20.0); Calcium, Blood 10.1 mg/dL (8.5-10.1); Creatinine, Blood 0.98 mg/dL (0.40-1.00); Globulin, Blood 3.6 g/dL (2.2-4.0); Potassium, Blood 4.4 mmol/L (3.5-5.5); Total Protein, Blood 7.2 g/dL (6.4-8.2)
[2023-10-15] MEDS ORDERED: Ondansetron HCl 2 MG / ML 2ML Vial IV ONE (13:20)
[2023-10-15] MEDS ORDERED: NS 1,000 ML IV SCH (13:20)
[2023-10-15] MEDS ORDERED: Acetaminophen 325 MG TABLET PO ONE (13:25)
[2023-10-15] MEDS ORDERED: OXYC5 PO (14:53)
[2023-10-15] MEDS ORDERED: PROM25 PO (14:53)
[2023-10-15 15:15] VITALS: BP 132/82
== END 2023-10-15 15:47 | disposition home or self-care (01) ==
LOC: ER 11:34
PROVIDERS: Emergency Medicine
DX: G40.909 Epilepsy, unspecified, not intractable, without status epilepticus (principal); E86.0 Dehydration; S42.302D Unspecified fracture of shaft of humerus, left arm, subsequent encounter for fracture with routine healing; X50.1XXD Overexertion from prolonged static or awkward postures, subsequent encounter; Z79.899 Other long term (current) drug therapy
CPT/HCPCS: 80053; 85025; 93005; 93010; 96361; 96374; 99284-25; A9270; J2405; J7030

== ENCOUNTER 2024-05-17 16:33 | Inpatient (IN) | payer OTHER ==
[~2024-05-17] VITALS: Ht 167.6 cm; Wt 65.9 kg
[~2024-05-17 16:33] MED LIST changes: -MONT4 PO; +OXYC5 PO; +PROM25 PO; +SINGULAIR PO
[2024-05-17] MEDS ORDERED: PRED20 PO (17:18)
[2024-05-17] MEDS ORDERED: AMOX-CLAV 875-1 EAC5 PO (17:18)
[2024-05-17] MEDS ORDERED: Pyridium100 MG PO (17:19)
[2024-05-17 17:50] LABS: BASOPHILS ABSOLUTE AUTO 0.04 K/mm3 (0.00-0.23); BASOPHILS PERCENT AUTO 1 % (0-2); EOSINOPHILS ABSOLUTE AUTO 0.15 K/mm3 (0.00-0.68); EOSINOPHILS PERCENT AUTO 2 % (0-6); Hematocrit 42.5 % (33.0-51.0); Hemoglobin 14.1 g/dL (11.5-16.0); IMMATURE GRAN ABSOLUTE AUTO 0.01 K/mm3 (0.00-0.10); IMMATURE GRAN PERCENT AUTO 0 % (0-1); LYMPHOCYTES ABSOLUTE AUTO 3.22 K/mm3 (0.84-5.20); LYMPHOCYTES PERCENT AUTO 47 % (21-46); MONOCYTES ABSOLUTE AUTO 0.69 K/mm3 (0.16-1.47); MONOCYTES PERCENT AUTO 10 % (4-13); Mean Corpuscular HGB 30.2 pg (26.0-34.0); Mean Corpuscular HGB Conc 33.2 g/dL (31.5-36.5); Mean Corpuscular Volume 91 fL (80-100); Mean Platelet Volume 9.4 fL (9.1-12.4); NEUTROPHILS ABSOLUTE AUTO 2.73 K/mm3 (1.96-9.15); NEUTROPHILS PERCENT AUTO 40 % (41-73); Platelet Count 426 K/mm3 (150-400); RDW Coefficient Variation 13.2 % (11.7-14.2); RDW Standard Deviation 43.8 fL (35.1-46.3); Red Blood Cell Count 4.67 M/mm3 (3.80-5.20); White Blood Cell Count 6.84 K/mm3 (4.00-11.30)
[2024-05-17 18:15] LABS: Alanine Aminotransfer (ALT/SGP 14 U/L (12-78); Albumin, Blood 3.8 g/dL (3.4-5.0); Albumin/Globulin Ratio 1.1 (0.8-1.8); Alk Phos 94 U/L (50-136); Anion Gap 10 mmol/L (3-11); Aspartate Aminotrans (AST/SGOT 13 U/L (12-37); Bilirubin, Total 0.5 mg/dL (0.1-1.0); Blood Urea Nitrogen 12 mg/dL (8-24); Bun/Creatinine Ratio 11.5 (12.0-20.0); CO2, Blood 27 mmol/L (21-32); Calcium, Blood 9.8 mg/dL (8.5-10.1); Chloride, Blood 104 mmol/L (98-108); Creatinine, Blood 1.04 mg/dL (0.40-1.00); Globulin, Blood 3.4 g/dL (2.2-4.0); Glomerular Filtration Rate 57 (60-); Glucose, Blood 102 mg/dL (70-99); Potassium, Blood 4.3 mmol/L (3.5-5.5); Sodium, Blood 137 mmol/L (136-145); Total Protein, Blood 7.2 g/dL (6.4-8.2)
[2024-05-17 20:39] LABS: Source, Urine Clean Catch
[2024-05-17 20:39] LABS: Ethanol (Alcohol), Blood, Med <3 mg/dL
[2024-05-17 20:43] LABS: Appearance, Urine Clear (Clear); Blood, Urine Neg (Neg); Glucose Qualitative, Urine Neg (Neg); Ketones, Urine 1+ (Neg); Leukocyte Esterase, Urine 3+ (Neg); Nitrite, Urine Pos (Neg); Protein, Urine 1+ (Neg); Urobilinogen, Urine 3+ (Normal)
[2024-05-17 20:52] LABS: Bilirubin, Urine 3+ (Neg)
[2024-05-17 20:53] LABS: Color, Urine Orange (P-Yellow)
[2024-05-17 20:54] LABS: Red Blood Cells, Urine Not Seen /hpf (0-2); Squamous Epithelial Cells Rare /hpf (Few); Transitional Epithelial Cells Few /hpf (0-Rare)
[2024-05-17 20:55] LABS: Bacteria Few /hpf
[2024-05-17 20:56] LABS: U Amphetamine Screen Not Detected; U Barbituate Screen Not Detected; U Benzodiazapine Screen Not Detected; U Buprenorphine Screen Not Detected; U Cannabinoids Screen DETECTED; U Cocaine Screen Not Detected; U Methadone Screen Not Detected; U Methamphetamine Screen Not Detected; U Opiates Screen Not Detected; U Oxycodone Screen Not Detected; U Phencyclidine Screen Not Detected
[2024-05-17] MEDS ORDERED: CefTRIAXone Sodium 1,000 MG in NS 100 ML IV ONE (21:30)
[2024-05-17] MEDS ORDERED: Acetaminophen 325 MG TABLET PO PRN (23:30)
[2024-05-17] MEDS ORDERED: Albuterol 2.5 MG/3 ML VIAL INH PRN (23:35)
[2024-05-17] MEDS ORDERED: Lactated Ringer's 1,000 ML IV ONE (23:40)
[2024-05-17] MEDS ORDERED: LevETIRAcetam 500 MG Tab PO SCH (23:45)
[2024-05-18 05:46] LABS: BASOPHILS ABSOLUTE AUTO 0.01 K/mm3 (0.00-0.23); BASOPHILS PERCENT AUTO 0 % (0-2); EOSINOPHILS PERCENT AUTO 0 % (0-6); Hematocrit 37.4 % (33.0-51.0); Hemoglobin 12.4 g/dL (11.5-16.0); IMMATURE GRAN ABSOLUTE AUTO 0.02 K/mm3 (0.00-0.10); IMMATURE GRAN PERCENT AUTO 0 % (0-1); LYMPHOCYTES ABSOLUTE AUTO 1.86 K/mm3 (0.84-5.20); LYMPHOCYTES PERCENT AUTO 25 % (21-46); MONOCYTES PERCENT AUTO 9 % (4-13); Mean Corpuscular HGB Conc 33.2 g/dL (31.5-36.5); Mean Corpuscular Volume 90 fL (80-100); Mean Platelet Volume 9.2 fL (9.1-12.4); NEUTROPHILS ABSOLUTE AUTO 4.97 K/mm3 (1.96-9.15); NEUTROPHILS PERCENT AUTO 66 % (41-73); Platelet Count 383 K/mm3 (150-400); RDW Coefficient Variation 13.2 % (11.7-14.2); RDW Standard Deviation 43.5 fL (35.1-46.3); Red Blood Cell Count 4.14 M/mm3 (3.80-5.20); White Blood Cell Count 7.56 K/mm3 (4.00-11.30)
[2024-05-18 06:16] LABS: Albumin, Blood 3.3 g/dL (3.4-5.0); Albumin/Globulin Ratio 1.1 (0.8-1.8); Bilirubin, Total 0.4 mg/dL (0.1-1.0); Bun/Creatinine Ratio 17.2 (12.0-20.0); Calcium, Blood 9.8 mg/dL (8.5-10.1); Creatinine, Blood 0.99 mg/dL (0.40-1.00); Globulin, Blood 3.1 g/dL (2.2-4.0); Magnesium, Blood 2.4 mg/dL (1.6-2.4); Potassium, Blood 4.8 mmol/L (3.5-5.5); Thyroid Stimulating Hormone 0.233 uIU/mL (0.360-4.800); Total Protein, Blood 6.4 g/dL (6.4-8.2)
[2024-05-18] MEDS ORDERED: Lisinopril 20 MG Tab PO SCH (09:00)
[2024-05-18] MEDS ORDERED: DULoxetine HCL 60 MG Capsule DR PO SCH (09:00)
[2024-05-18] MEDS ORDERED: Lactobacil 2-S.Thermo-Bifido 1 1 Cap PO SCH (09:00)
[2024-05-18] MEDS ORDERED: Enoxaparin 40 MG/0.4 ML SYR SC SCH (09:00)
[2024-05-18] MEDS ORDERED: Magnesium Oxide 400 MG Tab PO SCH (09:00)
[2024-05-18] MEDS ORDERED: Famotidine 20 MG Tab PO SCH (09:00)
[2024-05-18] MEDS ORDERED: Atorvastatin 40 MG Tab PO SCH (09:00)
[2024-05-18 12:46] VITALS: BP 141/68
[2024-05-18] MEDS ORDERED: Albuterol 2.5 MG/3 ML VIAL INH PRN ×2 (14:50→15:10)
[2024-05-18] MEDS ORDERED: Mometasone/Formoterol MDI 200/5 mcg 13 GM INH SCH (14:55)
[2024-05-18] MEDS ORDERED: CefTRIAXone Sodium 1,000 MG in NS 100 ML IV SCH (15:00)
[2024-05-18] MEDS ORDERED: Ipratropium/Albuterol SulF 2.5-0.5MG/3 ML Amp INH SCH (15:10)
[2024-05-18 16:02] VITALS: BP 123/76
--- NOTE | 2024-05-18 18:28 | NUR ---
ADMOSSION NOTE/SHIFT SUMMARY PATIENT ADMITTED FROM ER THIS AFTERNOON FOR UTI AND METABOLIC ENCEPHALOPATHY. PATIENT A/OX4, ABLE TO MAKE NEEDS KNOWN. INDEPENDENT IN ROOM WITH AMBULATION. COMPLAINING OF BLADDER PAIN AND DYSURIA. PATIENT CONTINENT AND INCONTINENT OF URINE, PULL UP IN PLACE. SKIN CLEAN AND DRY WITH TWO SCABS NOTED ONE TO LEFT BACK OF CALF AND THE OTHER TO RIGHT PRADO. PATIENT STATES HAD RIGHT HUMERUS FRACTURE IN OCTOBER AND ATTENDS PHYSICAL THERAPY FREQUENTLY. PATIENT WITH SOB WITH EXERTION, SPO2 WNL ON ROOM AIR. INSPIRATORY WHEEZES HEARD THROUGHOUT LUNGS. PATIENT DENIES CANNABIS USE, HOWEVER TOX SCREEN SHOWS POSITIVE. NO OTHER CONCERNS AT THIS TIME. ORIENTED TO ROOM AND CALL LIGHT, FAMILY AT BEDSIDE.
[2024-05-18 20:38] VITALS: BP 120/71
[2024-05-18] MEDS ORDERED: Montelukast Sodium 5 MG Chew PO SCH (21:00)
--- NOTE | 2024-05-19 03:50 | NUR ---
SHIFT SUMMARY PT IS A&O X4, PLEASANT, COOPERATIVE WITH CARE. @HS PT'S DAUGHTER AND GRANDSON BY THE BEDSIDE. SLEEP STUDY IN PROGRESS DURING THIS SHIFT. PT IS ON O2 1-2L VIA NASAL CANNULA PER RT'S ORDER. PT C/O ACHY 02/16, D/T HS BROKEN LEFT HUMERUS. TYLENOL MILDLY EFFECTIVE PER PT REPORT. NO SX HYPO/HYPERGLYCEMIA DURING THIS SHIFT. LUNGS WHEEZES PER AUSCULTATION. NO COUGH NOTED DURING THIS SHIFT. PT AMBULATES TO THE RESTROOM INDEPENDENTLY. NO ACUTE EVENTS DURING THIS SHIFT. BED AT THE LOWEST POSITION, CALL LIGHT WITHIN REACH. PT ABLE TO MAKE HER NEEDS KNOWN.
[2024-05-19 05:25] VITALS: BP 154/88
[2024-05-19 05:51] LABS: BASOPHILS ABSOLUTE AUTO 0.02 K/mm3 (0.00-0.23); BASOPHILS PERCENT AUTO 0 % (0-2); EOSINOPHILS ABSOLUTE AUTO 0.08 K/mm3 (0.00-0.68); EOSINOPHILS PERCENT AUTO 1 % (0-6); Hematocrit 37.5 % (33.0-51.0); Hemoglobin 12.4 g/dL (11.5-16.0); IMMATURE GRAN ABSOLUTE AUTO 0.02 K/mm3 (0.00-0.10); IMMATURE GRAN PERCENT AUTO 0 % (0-1); LYMPHOCYTES PERCENT AUTO 46 % (21-46); MONOCYTES ABSOLUTE AUTO 0.66 K/mm3 (0.16-1.47); MONOCYTES PERCENT AUTO 10 % (4-13); Mean Corpuscular HGB Conc 33.1 g/dL (31.5-36.5); Mean Corpuscular Volume 91 fL (80-100); Mean Platelet Volume 8.7 fL (9.1-12.4); NEUTROPHILS PERCENT AUTO 43 % (41-73); Platelet Count 345 K/mm3 (150-400); RDW Coefficient Variation 13.1 % (11.7-14.2); RDW Standard Deviation 43.1 fL (35.1-46.3); Red Blood Cell Count 4.14 M/mm3 (3.80-5.20); White Blood Cell Count 6.78 K/mm3 (4.00-11.30)
[2024-05-19 06:32] LABS: Bun/Creatinine Ratio 16.7 (12.0-20.0); Calcium, Blood 9.7 mg/dL (8.5-10.1); Creatinine, Blood 1.08 mg/dL (0.40-1.00); Potassium, Blood 4.3 mmol/L (3.5-5.5)
[2024-05-19 07:14] VITALS: BP 120/87
[2024-05-19] MEDS ORDERED: Meropenem 1,000 MG in NS 100 ML IV SCH (09:00)
[2024-05-19] MEDS ORDERED: TraMADol HCl 50 MG Tab PO PRN (10:45)
[2024-05-19 15:50] VITALS: BP 113/79
--- NOTE | 2024-05-19 18:48 | NUR ---
SHIFT SUMMARY PATIENT A/OX4 ABLE TO MAKE NEEDS KNOWN. COMPLAINING OF LEFT ARM PAIN R/T HUMERUS FRACTURE IN OCTOBER 2023, DR. BRONSON INFORMED AND NEW ORDER RECIEVED FOR TRAMADOL. MEDICATION EFFECTIVE. ANTIBIOTIC CHANGED TO MERREM IV. PATEINT SPO2 WNL ON ROOM AIR, ORDER FOR CONTINUOUS PULSE OX NIGHTLY AND 2 L OXYGEN VIA NASAL CANNULA NIGHTLY. PATIENT CONTINUES WITH DYSURIA. PATIENT TALKATIVE WITH STAFF MEMBERS AND COOPERATIVE AND PLEASANT. LUNG HARDEN CLEAR TO AUSCULTATION, IMPROVED SINCE YESTERDAY. NO OTHER CONCERNS AT THIS TIME.
[2024-05-19 20:09] VITALS: BP 107/82
[2024-05-19] MEDS ORDERED: NS 250 ML IV PRN (21:20)
--- NOTE | 2024-05-20 02:56 | NUR ---
SHIFT SUMMARY PT IS A&O X4, INDEPENDENT WITHIN HOSPITAL ROOM. C/O LEFT ARM (HX FRACTURE,) BACK AND NECK PAIN 04/18. PRN TRAMADOL AND TYLENOL EFFECTIVE PER PT REPORT. AT HS DAUGHTER BY THE BEDSIDE. IV ABX INFUSED ORDERED. NO ACUTE EVENTS DURING THIS SHIFT. PT IS ABLE TO MAKE HER NEEDS KNOWN. BED AT THE LOWEST POSITION, CALL LIGHT WITHIN REACH. ENCOURAGED [id number] IN BED.
[2024-05-20 06:00] LABS: BASOPHILS ABSOLUTE AUTO 0.03 K/mm3 (0.00-0.23); BASOPHILS PERCENT AUTO 0 % (0-2); EOSINOPHILS ABSOLUTE AUTO 0.13 K/mm3 (0.00-0.68); EOSINOPHILS PERCENT AUTO 2 % (0-6); Hematocrit 38.1 % (33.0-51.0); Hemoglobin 12.4 g/dL (11.5-16.0); IMMATURE GRAN ABSOLUTE AUTO 0.04 K/mm3 (0.00-0.10); IMMATURE GRAN PERCENT AUTO 1 % (0-1); LYMPHOCYTES ABSOLUTE AUTO 2.81 K/mm3 (0.84-5.20); LYMPHOCYTES PERCENT AUTO 39 % (21-46); MONOCYTES ABSOLUTE AUTO 0.78 K/mm3 (0.16-1.47); MONOCYTES PERCENT AUTO 11 % (4-13); Mean Corpuscular HGB 29.8 pg (26.0-34.0); Mean Corpuscular HGB Conc 32.5 g/dL (31.5-36.5); Mean Corpuscular Volume 92 fL (80-100); NEUTROPHILS ABSOLUTE AUTO 3.45 K/mm3 (1.96-9.15); NEUTROPHILS PERCENT AUTO 48 % (41-73); Platelet Count 334 K/mm3 (150-400); RDW Coefficient Variation 13.2 % (11.7-14.2); RDW Standard Deviation 44.2 fL (35.1-46.3); Red Blood Cell Count 4.16 M/mm3 (3.80-5.20); White Blood Cell Count 7.24 K/mm3 (4.00-11.30)
[2024-05-20 06:27] LABS: Bun/Creatinine Ratio 19.9 (12.0-20.0); Calcium, Blood 9.8 mg/dL (8.5-10.1); Creatinine, Blood 0.96 mg/dL (0.40-1.00); Magnesium, Blood 2.2 mg/dL (1.6-2.4); Phosphorus, Blood 4.5 mg/dL (2.5-4.9); Potassium, Blood 4.5 mmol/L (3.5-5.5)
[2024-05-20 06:32] VITALS: BP 128/80
[2024-05-20 07:52] VITALS: BP 130/89
[2024-05-20] MEDS ORDERED: Cyclobenzaprine HCl 10 MG Tab PO PRN (12:00)
[2024-05-20 15:19] VITALS: BP 117/78
--- NOTE | 2024-05-20 18:40 | NUR ---
SHIFT SUMMARY PATIENT A/OX4, PLEASANT AND TALKATIVE WITH STAFF. PATIENT CONTINUES WITH IV ANTIBIOTICS AND SCHEDULED NEBULIZERS. SPO2 WNL ON ROOM AIR WHEN PATIENT AWAKE. FLEXERIL ORDERED TODAY AND PATIENT STATES EFFECTIVE. INDEPENDENT IN ROOM WITH AMBULATION. PATIENT'S DAUGHTER AT BEDSIDE CURRENTLY. NO OTHER CONCERNS TODAY.
[2024-05-20 19:45] VITALS: BP 126/73
[2024-05-21 02:51] VITALS: BP 106/80
--- NOTE | 2024-05-21 04:30 | NUR ---
SHIFT SUMMARY NO ACUTE EVENTS/DISTRESS NOTED/REPORTED DURING THIS SHIFT. PT C/O LEFT UE, NECK AND BACK PAIN, (HX LEFT HUMERUS FRACTURE). MEDICATED ORDERED. TRAMADOL PRN EFFECTIVE PER PT REPORT. PT AMBULATES INDEPENDENTLY WITHIN THE HOSPITAL ROOM. AT HS DAUGHTER BY THE BEDSIDE. IV ABX INFUSED ORDERED. CALL LIGHT WITHIN REACH, BED AT THE LOWEST POSITION. PT IS ABLE TO MAKE HER NEEDS KNOWN.
[2024-05-21 06:01] LABS: BASOPHILS ABSOLUTE AUTO 0.02 K/mm3 (0.00-0.23); BASOPHILS PERCENT AUTO 0 % (0-2); EOSINOPHILS ABSOLUTE AUTO 0.16 K/mm3 (0.00-0.68); EOSINOPHILS PERCENT AUTO 2 % (0-6); Hematocrit 40.6 % (33.0-51.0); Hemoglobin 13.4 g/dL (11.5-16.0); IMMATURE GRAN ABSOLUTE AUTO 0.05 K/mm3 (0.00-0.10); IMMATURE GRAN PERCENT AUTO 1 % (0-1); LYMPHOCYTES ABSOLUTE AUTO 3.17 K/mm3 (0.84-5.20); LYMPHOCYTES PERCENT AUTO 43 % (21-46); MONOCYTES ABSOLUTE AUTO 0.78 K/mm3 (0.16-1.47); MONOCYTES PERCENT AUTO 11 % (4-13); Mean Corpuscular HGB 30.3 pg (26.0-34.0); Mean Corpuscular Volume 92 fL (80-100); Mean Platelet Volume 9.4 fL (9.1-12.4); NEUTROPHILS ABSOLUTE AUTO 3.18 K/mm3 (1.96-9.15); NEUTROPHILS PERCENT AUTO 43 % (41-73); Platelet Count 365 K/mm3 (150-400); RDW Coefficient Variation 12.9 % (11.7-14.2); RDW Standard Deviation 43.5 fL (35.1-46.3); Red Blood Cell Count 4.42 M/mm3 (3.80-5.20); White Blood Cell Count 7.36 K/mm3 (4.00-11.30)
[2024-05-21 06:32] LABS: Albumin, Blood 3.3 g/dL (3.4-5.0); Bilirubin, Total 0.3 mg/dL (0.1-1.0); Bun/Creatinine Ratio 22.8 (12.0-20.0); Creatinine, Blood 0.97 mg/dL (0.40-1.00); Globulin, Blood 3.3 g/dL (2.2-4.0); Magnesium, Blood 2.3 mg/dL (1.6-2.4); Phosphorus, Blood 3.5 mg/dL (2.5-4.9); Potassium, Blood 4.6 mmol/L (3.5-5.5); Total Protein, Blood 6.6 g/dL (6.4-8.2)
[2024-05-21 07:27] VITALS: BP 121/76
[2024-05-21 15:39] VITALS: BP 95/76
--- NOTE | 2024-05-21 18:13 | NUR ---
PATIENT A&OX4, COOPERATIVE OF CARES, AND ABLE TO MAKE NEEDS KNOWN. PATIENT AMBULATES INDEPENDENTLY IN ROOM. PATIENT RECEIVED SCHEDULED IV ABX PER EMAR. BED IN LOWEST POSITION AND CALL LIGHT WITHIN REACH.
[2024-05-21 19:09] VITALS: BP 117/87
[2024-05-22 02:53] VITALS: BP 113/76
[2024-05-22 05:49] LABS: BASOPHILS ABSOLUTE AUTO 0.03 K/mm3 (0.00-0.23); BASOPHILS PERCENT AUTO 1 % (0-2); EOSINOPHILS PERCENT AUTO 3 % (0-6); Hematocrit 40.3 % (33.0-51.0); Hemoglobin 13.4 g/dL (11.5-16.0); IMMATURE GRAN ABSOLUTE AUTO 0.06 K/mm3 (0.00-0.10); IMMATURE GRAN PERCENT AUTO 1 % (0-1); LYMPHOCYTES ABSOLUTE AUTO 2.02 K/mm3 (0.84-5.20); LYMPHOCYTES PERCENT AUTO 32 % (21-46); MONOCYTES ABSOLUTE AUTO 0.76 K/mm3 (0.16-1.47); MONOCYTES PERCENT AUTO 12 % (4-13); Mean Corpuscular HGB 30.3 pg (26.0-34.0); Mean Corpuscular HGB Conc 33.3 g/dL (31.5-36.5); Mean Corpuscular Volume 91 fL (80-100); Mean Platelet Volume 8.9 fL (9.1-12.4); NEUTROPHILS ABSOLUTE AUTO 3.26 K/mm3 (1.96-9.15); NEUTROPHILS PERCENT AUTO 52 % (41-73); Platelet Count 341 K/mm3 (150-400); RDW Coefficient Variation 13.1 % (11.7-14.2); RDW Standard Deviation 43.3 fL (35.1-46.3); Red Blood Cell Count 4.42 M/mm3 (3.80-5.20); White Blood Cell Count 6.33 K/mm3 (4.00-11.30)
[2024-05-22 06:16] LABS: Albumin, Blood 3.4 g/dL (3.4-5.0); Bilirubin, Total 0.4 mg/dL (0.1-1.0); Bun/Creatinine Ratio 26.4 (12.0-20.0); Calcium, Blood 10.1 mg/dL (8.5-10.1); Creatinine, Blood 0.91 mg/dL (0.40-1.00); Globulin, Blood 3.5 g/dL (2.2-4.0); Potassium, Blood 4.6 mmol/L (3.5-5.5); Total Protein, Blood 6.9 g/dL (6.4-8.2)
[2024-05-22 07:22] VITALS: BP 118/78
[2024-05-22 16:03] VITALS: BP 104/72
--- NOTE | 2024-05-22 17:44 | NUR ---
SHIFT SUMMARY PT IS A&OX4. PT ADMITTED DUE TO ACUTE ENCEPHALOPATHY. PT HAS AN IV AND IS RECIEVING IV ANTIBIOTICS. PT EATING ADEQUATELY. PT REPORTS HAVING A BM TODAY AND REPORTS NO ISSUES VOIDING. VSS. WORKED WITH PT. PT ON ROOM AIR. PLAN TO DISCHARGE POST 5 DAYS OF ANTIBIOTIC, TOMORROW. PT CALLS APPROPRIATELY AND CALL LIGHT IN REACH.
[2024-05-22 19:16] VITALS: BP 108/74
[2024-05-23 02:30] VITALS: BP 127/81
[2024-05-23 06:22] LABS: Hemoglobin 13.3 g/dL (11.5-16.0); Mean Corpuscular HGB 29.8 pg (26.0-34.0); Mean Corpuscular HGB Conc 32.4 g/dL (31.5-36.5); Mean Corpuscular Volume 92 fL (80-100); Mean Platelet Volume 9.5 fL (9.1-12.4); Platelet Count 356 K/mm3 (150-400); RDW Coefficient Variation 12.8 % (11.7-14.2); RDW Standard Deviation 42.9 fL (35.1-46.3); Red Blood Cell Count 4.46 M/mm3 (3.80-5.20); White Blood Cell Count 7.02 K/mm3 (4.00-11.30)
--- NOTE | 2024-05-23 06:40 | NUR ---
NO ACUTE CHANGES DURING SHIFT, PT STABLE. PLAN FOR DISCHARGE THIS AFTERNOON.
[2024-05-23 06:45] LABS: Albumin, Blood 3.4 g/dL (3.4-5.0); Albumin/Globulin Ratio 1.1 (0.8-1.8); Bilirubin, Total 0.3 mg/dL (0.1-1.0); Calcium, Blood 10.2 mg/dL (8.5-10.1); Creatinine, Blood 0.91 mg/dL (0.40-1.00); Globulin, Blood 3.2 g/dL (2.2-4.0); Potassium, Blood 4.7 mmol/L (3.5-5.5); Total Protein, Blood 6.6 g/dL (6.4-8.2)
[2024-05-23 08:41] VITALS: BP 110/77
--- NOTE | 2024-05-23 11:14 | NUR ---
CLARIFIED LASIX ORDER WITH DR BRONSON, OKAYED ADMIN OF IV AND PO LASIX THIS AM. GIVEN.
[2024-05-23 15:25] VITALS: BP 114/77
--- NOTE | 2024-05-23 18:05 | NUR ---
SHIFT SUMMARY PATIENT DISCHARGED THIS SHIFT. WAITING FOR RIDE. IV REMOVED WITHOUT COMPLICATION. DISCHARGE PACKET GIVEN AND REVIEWED, VERBALLY ACKNOWLEDGED UNDERSTANDING. NO NEW MEDS ON DISCHARGE. LAST DOSE OF MEROPENUM GIVEN EARLY WITH GUIDANCE FROM PHARMACY ON TIMING. CARES ONGOING.
== END 2024-05-23 18:52 | disposition home or self-care (01) | DRG 689 ==
LOC: ER 16:33 → ERHOLD 16:34 → MEDS 16:34
PROVIDERS: Emergency Medicine; Hospitalist; Student in an Organized Health Care Education/Training Program; ADMIT Student in an Organized Health Care Education/Training Program
DX: N39.0 Urinary tract infection, site not specified (principal); G92.8 Other toxic encephalopathy; Z16.39 Resistance to other specified antimicrobial drug; R47.01 Aphasia; G43.909 Migraine, unspecified, not intractable, without status migrainosus; I10 Essential (primary) hypertension; J45.909 Unspecified asthma, uncomplicated; G47.33 Obstructive sleep apnea (adult) (pediatric); F41.9 Anxiety disorder, unspecified; F32.A Depression, unspecified; E78.5 Hyperlipidemia, unspecified; M79.7 Fibromyalgia; G40.909 Epilepsy, unspecified, not intractable, without status epilepticus; B96.20 Unspecified Escherichia coli [E. coli] as the cause of diseases classified elsewhere; E04.1 Nontoxic single thyroid nodule; R30.0 Dysuria; Z88.0 Allergy status to penicillin; Z91.018 Allergy to other foods; Z79.899 Other long term (current) drug therapy; Z98.890 Other specified postprocedural states; Z98.51 Tubal ligation status; Z87.891 Personal history of nicotine dependence
CPT/HCPCS: 36415; 70450; 70496; 70498; 71045; 76536; 80048; 80053; 80320; 81001; 83735; 84100; 84439; 84443; 85025; 85027; 85730; 87077; 87086; 87186; 93005; 93010; 94640; 94664; 94760; 94762; 96365-59; 96372; 97110; 97161; 97530; 99285-25; A9270; G0378; J0696; J1650; J2185; J7050; J7120; Q9967

== ENCOUNTER → 2025-01-01 | Outpatient (CLI) | payer OTHER ==
[~2025-01-01] MED LIST changes: +AMOX-CLAV 875-1 EAC5 PO; +Pyridium100 MG PO
== END ==
LOC: LAB 17:50 → LAB SHORT 17:50
DX: R30.0 Dysuria (principal)
CPT/HCPCS: 87086

== ENCOUNTER 2025-01-18 16:07 | Emergency (ER) | payer OTHER ==
[~2025-01-18] VITALS: Ht 165.1 cm; Wt 59.9 kg
[2025-01-18 17:10] LABS: BASOPHILS ABSOLUTE AUTO 0.03 K/mm3 (0.00-0.23); BASOPHILS PERCENT AUTO 0 % (0-2); EOSINOPHILS ABSOLUTE AUTO 0.16 K/mm3 (0.00-0.68); EOSINOPHILS PERCENT AUTO 2 % (0-6); Hematocrit 39.8 % (33.0-51.0); IMMATURE GRAN ABSOLUTE AUTO 0.02 K/mm3 (0.00-0.10); IMMATURE GRAN PERCENT AUTO 0 % (0-1); LYMPHOCYTES ABSOLUTE AUTO 2.94 K/mm3 (0.84-5.20); LYMPHOCYTES PERCENT AUTO 37 % (21-46); MONOCYTES ABSOLUTE AUTO 0.87 K/mm3 (0.16-1.47); MONOCYTES PERCENT AUTO 11 % (4-13); Mean Corpuscular HGB 29.7 pg (26.0-34.0); Mean Corpuscular HGB Conc 32.7 g/dL (31.5-36.5); Mean Corpuscular Volume 91 fL (80-100); Mean Platelet Volume 9.2 fL (9.1-12.4); NEUTROPHILS ABSOLUTE AUTO 3.94 K/mm3 (1.96-9.15); NEUTROPHILS PERCENT AUTO 50 % (41-73); Platelet Count 282 K/mm3 (150-400); RDW Coefficient Variation 13.1 % (11.7-14.2); RDW Standard Deviation 43.9 fL (35.1-46.3); Red Blood Cell Count 4.37 M/mm3 (3.80-5.20); White Blood Cell Count 7.96 K/mm3 (4.00-11.30)
[2025-01-18 17:21] LABS: Source, Urine Clean Catch
[2025-01-18 17:25] LABS: Appearance, Urine Hazy (Clear); Blood, Urine 4+ (Neg); Glucose Qualitative, Urine Neg (Neg); Ketones, Urine Neg (Neg); Leukocyte Esterase, Urine Neg (Neg); Nitrite, Urine Pos (Neg); Protein, Urine 2+ (Neg); Urobilinogen, Urine 3+ (Normal)
[2025-01-18 17:42] LABS: Bilirubin, Urine 3+ (Neg); Color, Urine Orange (P-Yellow)
[2025-01-18 17:44] LABS: Bacteria Many /hpf; Squamous Epithelial Cells Few /hpf (Few); Transitional Epithelial Cells Rare /hpf (0-Rare); White Blood Cells, Urine 25-50 /hpf (0-5)
[2025-01-18 17:45] LABS: Hyaline Casts 0-2 /lpf (0-2)
[2025-01-18 17:49] LABS: Albumin, Blood 3.4 g/dL (3.4-5.0); Albumin/Globulin Ratio 1.2 (0.8-1.8); Bilirubin, Total 0.4 mg/dL (0.1-1.0); Bun/Creatinine Ratio 14.9 (12.0-20.0); Calcium, Blood 9.6 mg/dL (8.5-10.1); Creatinine, Blood 0.94 mg/dL (0.40-1.00); Globulin, Blood 2.9 g/dL (2.2-4.0); Potassium, Blood 4.1 mmol/L (3.5-5.5); Total Protein, Blood 6.3 g/dL (6.4-8.2)
[2025-01-18] MEDS ORDERED: LevoFLOXacin 500MG/D5W 100ML 100 ML IV ONE (18:05)
[2025-01-18 18:25] VITALS: BP 159/96
[2025-01-18] MEDS ORDERED: CIPR500 PO (18:33)
[2025-01-18] MEDS ORDERED: PHENA200 PO (18:33)
[2025-01-18] MEDS ORDERED: LORA10ER PO (18:51)
[2025-01-18] MEDS ORDERED: LISI20 (18:51)
== END 2025-01-18 19:49 | disposition home or self-care (01) ==
LOC: ER 16:07
PROVIDERS: Physician Assistant
DX: N39.0 Urinary tract infection, site not specified (principal); I10 Essential (primary) hypertension; J44.89 Other specified chronic obstructive pulmonary disease; Z79.899 Other long term (current) drug therapy
CPT/HCPCS: 80053; 81001; 83690; 85025; 87086; 96365; 99283-25; J1956

== ENCOUNTER → 2025-01-27 | Outpatient (CLI) | payer OTHER ==
[~2025-01-27] MED LIST changes: +CIPR500 PO; +LISI20; +LORA10ER PO; +PHENA200 PO
[2025-01-27 12:02] LABS: Source, Urine Clean Catch
[2025-01-27 14:42] LABS: Bilirubin, Urine Neg (Neg); Blood, Urine Neg (Neg); Color, Urine Yellow (P-Yellow); Glucose Qualitative, Urine Neg (Neg); Ketones, Urine Neg (Neg); Leukocyte Esterase, Urine 1+ (Neg); Nitrite, Urine Neg (Neg); Protein, Urine 2+ (Neg); Specific Gravity, Urine 1.025 (1.003-1.022); Urobilinogen, Urine NORM (Normal)
[2025-01-27 15:05] LABS: Appearance, Urine Hazy (Clear)
[2025-01-27 15:06] LABS: Amorphous Light (0-Heavy); Bacteria Mod /hpf; Hyaline Casts 0-2 /lpf (0-2); Mucus Light (0-Heavy); Red Blood Cells, Urine 0-2 /hpf (0-2); Squamous Epithelial Cells Few /hpf (Few); Transitional Epithelial Cells Rare /hpf (0-Rare)
== END ==
LOC: LAB 11:57 → LAB SHORT 11:57
PROVIDERS: Student in an Organized Health Care Education/Training Program
DX: R10.30 Lower abdominal pain, unspecified (principal); R39.15 Urgency of urination
CPT/HCPCS: 81001; 87077; 87086; 87186

== ENCOUNTER → 2025-07-12 | Outpatient (CLI) | payer OTHER ==
[2025-07-12 15:28] LABS: Source, Urine Clean Catch
[2025-07-12 16:22] LABS: BASOPHILS ABSOLUTE AUTO 0.02 K/mm3 (0.00-0.23); BASOPHILS PERCENT AUTO 0 % (0-2); EOSINOPHILS ABSOLUTE AUTO 0.25 K/mm3 (0.00-0.68); EOSINOPHILS PERCENT AUTO 3 % (0-6); Hematocrit 43.3 % (33.0-51.0); Hemoglobin 13.6 g/dL (11.5-16.0); IMMATURE GRAN ABSOLUTE AUTO 0.02 K/mm3 (0.00-0.10); IMMATURE GRAN PERCENT AUTO 0 % (0-1); LYMPHOCYTES ABSOLUTE AUTO 3.66 K/mm3 (0.84-5.20); LYMPHOCYTES PERCENT AUTO 43 % (21-46); MONOCYTES ABSOLUTE AUTO 0.78 K/mm3 (0.16-1.47); MONOCYTES PERCENT AUTO 9 % (4-13); Mean Corpuscular HGB Conc 31.4 g/dL (31.5-36.5); Mean Corpuscular Volume 93 fL (80-100); NEUTROPHILS ABSOLUTE AUTO 3.78 K/mm3 (1.96-9.15); NEUTROPHILS PERCENT AUTO 45 % (41-73); NRBC ABSOLUTE 0.00 K/mm3 (0.00-0.02); NRBC Auto 0.0 /100 WBC (0.0-0.2); Platelet Count 297 K/mm3 (150-400); RDW Coefficient Variation 13.4 % (11.7-14.2); RDW Standard Deviation 45.6 fL (35.1-46.3)
[2025-07-12 16:29] LABS: Bilirubin, Urine Neg (Neg); Color, Urine Yellow (P-Yellow); Glucose Qualitative, Urine Neg (Neg); Ketones, Urine Neg (Neg); Leukocyte Esterase, Urine 1+ (Neg); Protein, Urine 1+ (Neg); Specific Gravity, Urine 1.015 (1.003-1.022); Urobilinogen, Urine NORM (Normal)
[2025-07-12 16:39] LABS: LDL/HDL RATIO 1.6; Magnesium, Blood 2.5 mg/dL (1.6-2.4); Thyroid Stimulating Hormone 2.180 uIU/mL (0.360-4.800); Very Low Density Lipoprot Chol 27 mg/dL (6-32)
[2025-07-12 16:40] LABS: Alanine Aminotransfer (ALT/SGP 25 U/L (12-78); Albumin, Blood 4.2 g/dL (3.4-5.0); Albumin/Globulin Ratio 1.3 (0.8-1.8); Anion Gap 7 mmol/L (3-11); Aspartate Aminotrans (AST/SGOT 14 U/L (12-37); Bilirubin, Total 0.4 mg/dL (0.1-1.0); Blood Urea Nitrogen 13 mg/dL (8-24); CHOL/HDL RATIO 3.0; CO2, Blood 31 mmol/L (21-32); Calcium, Blood 9.6 mg/dL (8.5-10.1); Chloride, Blood 102 mmol/L (98-108); Cholesterol 197 mg/dL (50-200); Creatinine, Blood 1.06 mg/dL (0.40-1.00); Globulin, Blood 3.3 g/dL (2.2-4.0); Glucose, Blood 86 mg/dL (70-99); HDL Cholesterol 66 mg/dL (>39); Low Density Lipoprotein Chol 104 mg/dL (0-110); Potassium, Blood 3.7 mmol/L (3.5-5.5); Sodium, Blood 136 mmol/L (136-145); Total Protein, Blood 7.5 g/dL (6.4-8.2); Triglycerides 136 mg/dL (30-160)
[2025-07-12 16:47] LABS: Red Blood Cells, Urine Not Seen /hpf (0-2)
[2025-07-12 17:30] LABS: Bacterial Vaginosis PCR Negative (NEGATIVE)
[2025-07-12 20:07] LABS: Candida Group, PCR DETECTED (NOT DETECT); Candida glabrata-krusei, PCR DETECTED (NOT DETECT)
== END | disposition home or self-care (01) ==
LOC: LAB 08:35 → LAB SHORT 08:35
PROVIDERS: Student in an Organized Health Care Education/Training Program
DX: E11.9 Type 2 diabetes mellitus without complications (principal); I10 Essential (primary) hypertension; E78.2 Mixed hyperlipidemia; E83.42 Hypomagnesemia; F33.9 Major depressive disorder, recurrent, unspecified; F41.1 Generalized anxiety disorder; N89.8 Other specified noninflammatory disorders of vagina
CPT/HCPCS: 80053; 80061; 81001; 81515; 83036; 83735; 84443; 85025